=== PATIENT | male | born 2000 | race Caucasian/White ===

== ENCOUNTER 2023-06-30 12:37 | Emergency (ER) | payer OTHER ==
[~2023-06-30] VITALS: Ht 182.9 cm; Wt 149.7 kg
[2023-06-30 12:44] VITALS: BP 133/88
[2023-06-30] MEDS ORDERED: CEPHALEXIN500 M2 PO (13:44)
== END 2023-06-30 14:02 | disposition home or self-care (01) ==
LOC: ER 12:37
DX: L03.211 Cellulitis of face (principal); F17.290 Nicotine dependence, other tobacco product, uncomplicated
CPT/HCPCS: 99283